=== PATIENT | female | born 1965 | race Caucasian/White ===

== ENCOUNTER 2019-07-11 22:28 | Emergency (ER) | payer MEDICAID ==
[~2019-07-11] VITALS: Ht 152.4 cm; Wt 89.8 kg
[~2019-07-11 22:28] MED LIST: PRED15SO39 PO
[2019-07-11 22:32] VITALS: BP 150/78
--- NOTE | 2019-07-11 23:29 | NUR ---
53 Y/O FEMALE C/O CHEST PAIN AND SOB X 1 WEEK INCREASING TODAY. DENIES COUGH/CONGESTION. 10/10 STERNAL PRESSURE. PT STATES BILATERAL ARM NUMBNESS THAT STARTED 2 HRS AGO. +NAUSEA, DENIES VOMITING/DIARRHEA. STATES SHE TOOK IBURPROFEN AT 1700 AND NO PAIN RELIEF. PT PLACED ON THE MONITOR. RR EVEN AND UNLABORED, PT SITTING IN BED CALM AND PLEASANT. VSS. FAMILY AT BEDSIDE. MEDHX: ARTHRITIS ALLERGIES: NKA
--- NOTE | 2019-07-11 23:54 | NUR ---
DR JAMES AT BEDSIDE EXAMINING PT.
--- NOTE | 2019-07-12 01:09 | NUR ---
RADIOLOGY AT BEDSIDE
--- NOTE | 2019-07-12 01:11 | NUR ---
PT SITTING UPRIGHT AWAKE AND ALERT. RR EVEN AND UNLABORED. PT ON MONITOR. VSS. WILL CONTINUE TO MONITOR.
[2019-07-12 01:25] LABS: BASOPHILS # (AUTO) 0.1 K/uL (0.00-0.22); BASOPHILS % (AUTO) 1.2 % (0.0-2.0); EOSINOPHILS # (AUTO) 0.2 K/uL (0-0.4); EOSINOPHILS % (AUTO) 4.3 % (0.0-4.0); HEMATOCRIT 41.8 % (36-48); HEMOGLOBIN 13.8 g/dL (12.0-16.0); LYMPHOCYTES # (AUTO) 2.2 K/uL (2.5-16.5); LYMPHOCYTES % (AUTO) 37.5 % (20.5-51.1); MEAN CORPUSCULAR HEMOGLOBIN 30 pg (27-31); MEAN CORPUSCULAR HGB CONC 33 g/dL (33-37); MEAN CORPUSCULAR VOLUME 90.6 fL (80-94); MONOCYTES # (AUTO) 0.4 K/uL (0.8-1.0); MONOCYTES % (AUTO) 6.3 % (1.7-9.3); NEUTROPHILS # (AUTO) 2.9 K/uL (1.8-7.7); NEUTROPHILS % (AUTO) 50.7 % (42.2-75.2); PLATELET COUNT (AUTO) 210 K/uL (140-450); RED BLOOD CELL COUNT(AUTO) 4.61 MIL/uL (4.20-5.40); RED CELL DISTRIBUTION WIDTH 13.9 % (11.6-13.7); WHITE BLOOD COUNT (AUTO) 5.7 K/uL (4.8-10.8)
[2019-07-12 01:39] LABS: ALBUMIN 3.8 g/dL (3.4-5.0); ANION GAP 13.3 (8-16); CARBON DIOXIDE 27.8 mmol/L (21-32); CREATININE 0.7 mg/dL (0.6-1.3); POTASSIUM 4.1 mmol/L (3.5-5.1); TOTAL BILIRUBIN 0.2 mg/dL (0.0-1.0)
--- NOTE | 2019-07-12 01:42 | NUR ---
PT AMBULATED TO RESTROOM WITH STEADY GAIT.
--- NOTE | 2019-07-12 03:09 | NUR ---
PT STATES DECREASE IN PAIN AT THIS TIME. LAYING IN SEMI FOWLERS POSITION. VSS.
[2019-07-12 03:15] VITALS: BP 148/84
--- NOTE | 2019-07-12 03:16 | NUR ---
Patient discharged with v/s stable. Written and verbal after care instructions given and explained. Patient alert, oriented and verbalized understanding of instructions. Ambulatory with steady gait. All questions addressed prior to discharge. ID band removed. Patient advised to follow up with PMD. Rx of FLONASE given. Patient educated on indication of medication including possible reaction and side effects. Opportunity to ask questions provided and answered.
== END 2019-07-12 03:16 | disposition home or self-care (01) ==
LOC: MED 22:28
DX: R07.89 Other chest pain (principal); J30.9 Allergic rhinitis, unspecified; R09.81 Nasal congestion; M19.90 Unspecified osteoarthritis, unspecified site; Z79.899 Other long term (current) drug therapy
CPT/HCPCS: 36415; 71045; 80053; 83880; 84484; 85025; 85610; 85730; 93005; 99284; Q0092